=== PATIENT | female | born 1975 | race Caucasian/White ===

== ENCOUNTER 2019-09-29 22:16 | Inpatient (IN) ==
[2019-09-29 22:58] LABS: Basophils % 0.1 %; Hematocrit 38.9 % (35.3-44.9); Immature Granulocytes % 0.2 % (0-4); Lymphocytes # 1.1 K/mcL (0.6-4.6); Lymphocytes % 12.7 %; Mean Corpuscular HGB Conc 30.8 g/dL (31.6-35.5); Mean Corpuscular Hemoglobin 30.8 pg (28.0-33.3); Mean Platelet Volume 9.5 fL (9.4-12.4); Monocytes # 0.6 K/mcL (0.0-1.3); Monocytes % 6.8 %; Platelet Count 269 K/mcL (140-400); Red Blood Count 3.89 M/mcL (3.82-4.97); Red Cell Distribution Width 13.8 % (11.5-14.5); Segmented Neutrophils % 80.2 %; White Blood Count 8.7 K/mcL (4.3-11.1)
[2019-09-29 23:02] LABS: Prothrombin Time 11.4 Seconds (9.4-12.1)
[2019-09-29 23:04] LABS: Activated Partial Thrombo Time 32.6 Seconds (26.0-36.0)
[2019-09-29 23:18] LABS: Alanine Aminotransferase 11 Units/L (7-52); Albumin 3.9 g/dL (3.5-5.7); Albumin/Globulin Ratio 1.6 (1.1-2.2); Alkaline Phosphatase 76 Units/L (34-104); Aspartate Amino Transferase 14 Units/L (13-39); BUN/Creatinine Ratio 28 (6-26); Bilirubin,Total 0.3 mg/dL (0.3-1.0); Blood Urea Nitrogen 18 mg/dL (6-20); Calcium 9.4 mg/dL (8.6-10.3); Carbon Dioxide 26 mEq/L (23-29); Chloride 109 mEq/L (98-107); Creatine Kinase 63 Units/L (30-223); Globulin 2.5 g/dL (2.4-3.5); Glucose 127 mg/dL (70-105); Osmolality,Calculated 297 (280-300); Potassium 3.5 mEq/L (3.5-5.1); Sodium 142 mEq/L (136-145); Total Protein 6.4 g/dL (6.4-8.9); eGFR For African Americans > 60 (> 60); eGFR For Non-African Americans > 60 (> 60)
[2019-09-29 23:45] LABS: Bilirubin,Urine Negative (Negative); Blood,Urine Trace (Negative); Clarity,Urine Clear (Clear); Color,Urine Light-Yellow (Yellow); Glucose,Urine (UA) Normal (Normal); Hyaline Casts,Urine Few per lpf (None Seen); Ketones,Urine Negative (Negative); Leukocyte Esterase,Urine Trace (Negative); Mucus,Urine Few per lpf (None-Few); Nitrite,Urine Negative (Negative); Protein,Urine Trace mg/dL (Neg-Trace); Renal Epithelial Cells,Urine Few per hpf (None-Few); Specific Gravity,Urine > 1.030 (1.010-1.025); Squamous Epithelial Cell,Urine Few per hpf (None-Few); Urobilinogen,Urine Normal (Normal); WBC,Urine 0-3 per hpf (0-3)
[2019-09-30 01:11] LABS: Adenovirus Not Detected (Not Detect); Bordetella Pertussis Not Detected (Not Detect); Chlamydophila pneumoniae Not Detected (Not Detect); Coronavirus 229E Not Detected (Not Detect); Coronavirus HKU1 Not Detected (Not Detect); Coronavirus NL63 Not Detected (Not Detect); Coronavirus OC43 Not Detected (Not Detect); Human Metapneumovirus Not Detected (Not Detect); Human Rhinovirus/Enterovirus Not Detected (Not Detect); Influenza A Subtype 2009 H1 Not Detected (Not Detect); Influenza B Not Detected (Not Detect); Mycoplasma pneumoniae Not Detected (Not Detect); Parainfluenza Virus 1 Not Detected (Not Detect); Parainfluenza Virus 2 Not Detected (Not Detect); Parainfluenza Virus 3 Not Detected (Not Detect); Parainfluenza Virus 4 Not Detected (Not Detect); Respiratory Syncytial Virus Not Detected (Not Detect)
[2019-09-30 03:42] LABS: Amphetamine Screen,Urine Negative ng/mL (Cutoff=1000); Barbiturate Screen,Urine Negative ng/mL (Cutoff=200); Benzodiazepines Screen,Urine Positive ng/mL (Cutoff=200); Cannabinoid Screen,Urine Negative ng/mL (Cutoff = 50); Cocaine Screen,Urine Negative ng/mL (Cutoff= 300); Opiate Screen,Urine Negative ng/mL (Cutoff=300); Phencyclidine Screen,Urine Negative ng/mL (Cutoff=25)
[2019-09-30] MEDS ORDERED: Naloxone 0.4 MG/ML INJ IVP PRN (04:04)
[2019-09-30] MEDS ORDERED: 0.9 % Sodium Chloride 1,000 ML IVC SCH (04:15)
[2019-09-30] MEDS ORDERED: Ringers Solution, Lactated 1,000 ML IVC ONE (07:42)
[2019-09-30] MEDS: Cholecalciferol (D-3) 1,000 UNIT (25MCG) TABLET PO SCH (10:07)
[2019-09-30] MEDS: Vitamin E 200 UNIT (90MG) CAPSULE PO SCH (10:07)
[2019-09-30] MEDS: cefTRIAXone 1,000 MG in 0.9 % Sodium Chloride Mini Bag 100 ML IVPB SCH (10:08)
[2019-09-30] MEDS: Acetaminophen 325 MG TABLET PO PRN ×2 (10:12→18:51)
[2019-09-30] MEDS ORDERED: Lithium Carbonate 300 MG CAPSULE PO SCH (21:00)
[2019-09-30] MEDS ORDERED: RISPERIDONE 0.5 MG PO SCH (21:00)
[2019-09-30] MEDS ORDERED: BENZTROPINE MESYLATE 2 MG PO SCH (21:00)
[2019-09-30] MEDS: OLANZapine 10 MG TAB.RAPDIS PO SCH (21:28)
[2019-09-30] MEDS: *HR* Acetaminophen w/Cod 300-30 mg 1 TAB TABLET PO SCH (21:28)
[2019-09-30] MEDS: Lithium Carbonate 300 MG CAPSULE PO SCH (21:28)
[2019-09-30] MEDS: clonazePAM 0.5 MG TABLET PO SCH (21:29)
[2019-09-30] MEDS: risperiDONE 1 MG TABLET PO SCH (21:29)
[2019-10-01] MEDS: Ondansetron 4 MG/2 ML VIAL IVP PRN ×2 (02:11→20:59)
[2019-10-01 02:33] LABS: Hematocrit 39.1 % (35.3-44.9); Hemoglobin 12.1 g/dL (11.5-15.4); Immature Granulocytes % 0.3 % (0-4); Lymphocytes # 1.8 K/mcL (0.6-4.6); Lymphocytes % 26.2 %; Mean Corpuscular HGB Conc 30.9 g/dL (31.6-35.5); Mean Corpuscular Hemoglobin 31.2 pg (28.0-33.3); Mean Corpuscular Volume 100.8 fL (83.0-100.0); Mean Platelet Volume 9.7 fL (9.4-12.4); Monocytes # 0.5 K/mcL (0.0-1.3); Monocytes % 6.5 %; Neutrophils # 4.6 K/mcL (1.6-8.9); Platelet Count 285 K/mcL (140-400); Red Blood Count 3.88 M/mcL (3.82-4.97); Red Cell Distribution Width 13.8 % (11.5-14.5); White Blood Count 6.9 K/mcL (4.3-11.1)
[2019-10-01 02:56] LABS: BUN/Creatinine Ratio 27 (6-26); Blood Urea Nitrogen 18 mg/dL (6-20); Calcium 9.6 mg/dL (8.6-10.3); Carbon Dioxide 23 mEq/L (23-29); Chloride 110 mEq/L (98-107); Glucose 99 mg/dL (70-105); Magnesium 2.3 mg/dL (1.6-2.6); Osmolality,Calculated 294 (280-300); Potassium 3.9 mEq/L (3.5-5.1); Sodium 141 mEq/L (136-145); eGFR For African Americans > 60 (> 60); eGFR For Non-African Americans > 60 (> 60)
[2019-10-01] MEDS: Vitamin E 200 UNIT (90MG) CAPSULE PO SCH (10:01)
[2019-10-01] MEDS: cefTRIAXone 1,000 MG in 0.9 % Sodium Chloride Mini Bag 100 ML IVPB SCH (10:01)
[2019-10-01] MEDS: Cholecalciferol (D-3) 1,000 UNIT (25MCG) TABLET PO SCH (10:01)
[2019-10-01] MEDS: clonazePAM 0.5 MG TABLET PO SCH ×2 (10:02→15:38)
[2019-10-01] MEDS: *HR* Heparin 5,000 UNIT/ML VIAL SQ SCH (18:12)
[2019-10-02 01:27] LABS: Hematocrit 40.4 % (35.3-44.9); Hemoglobin 12.8 g/dL (11.5-15.4); Immature Granulocytes % 0.4 % (0-4); Lymphocytes # 0.6 K/mcL (0.6-4.6); Lymphocytes % 4.3 %; Mean Corpuscular HGB Conc 31.7 g/dL (31.6-35.5); Mean Corpuscular Hemoglobin 31.8 pg (28.0-33.3); Mean Corpuscular Volume 100.2 fL (83.0-100.0); Mean Platelet Volume 9.4 fL (9.4-12.4); Monocytes # 0.8 K/mcL (0.0-1.3); Monocytes % 5.8 %; Neutrophils # 12.4 K/mcL (1.6-8.9); Platelet Count 305 K/mcL (140-400); Red Blood Count 4.03 M/mcL (3.82-4.97); Red Cell Distribution Width 13.7 % (11.5-14.5); Segmented Neutrophils % 89.5 %
[2019-10-02 01:28] LABS: White Blood Count 13.9 K/mcL (4.3-11.1)
[2019-10-02 01:47] LABS: BUN/Creatinine Ratio 18 (6-26); Blood Urea Nitrogen 18 mg/dL (6-20); Calcium 10.1 mg/dL (8.6-10.3); Carbon Dioxide 21 mEq/L (23-29); Chloride 107 mEq/L (98-107); Glucose 148 mg/dL (70-105); Magnesium 2.5 mg/dL (1.6-2.6); Osmolality,Calculated 293 (280-300); Potassium 3.8 mEq/L (3.5-5.1); Sodium 139 mEq/L (136-145); eGFR For African Americans > 60 (> 60); eGFR For Non-African Americans 59 (> 60)
[2019-10-02] MEDS: clonazePAM 0.5 MG TABLET PO SCH ×2 (04:48→09:00)
[2019-10-02] MEDS: Lithium Carbonate 300 MG CAPSULE PO SCH (04:48)
[2019-10-02] MEDS: OLANZapine 10 MG TAB.RAPDIS PO SCH (04:49)
[2019-10-02] MEDS: risperiDONE 1 MG TABLET PO SCH (04:49)
[2019-10-02] MEDS: *HR* Acetaminophen w/Cod 300-30 mg 1 TAB TABLET PO SCH (04:49)
[2019-10-02 06:42] VITALS: BP 144/94
[2019-10-02] MEDS: *HR* Heparin 5,000 UNIT/ML VIAL SQ SCH (06:53)
[2019-10-02] MEDS: Cholecalciferol (D-3) 1,000 UNIT (25MCG) TABLET PO SCH (08:59)
[2019-10-02] MEDS: Vitamin E 200 UNIT (90MG) CAPSULE PO SCH (08:59)
[2019-10-02] MEDS: Acetaminophen 325 MG TABLET PO PRN (09:00)
[2019-10-02] MEDS: Ondansetron 4 MG/2 ML VIAL IVP PRN (09:01)
[2019-10-02] MEDS: cefTRIAXone 1,000 MG in 0.9 % Sodium Chloride Mini Bag 100 ML IVPB SCH (09:02)
[2019-10-02] MEDS ORDERED: Ondansetron ODT 4 MG TAB.RAPDIS SL ONE (14:01)
== END 2019-10-02 16:17 | disposition home health service (06) | DRG 690 ==
LOC: EMEROOARM 22:16 → 3ANU 22:16 → SUATTDRO 09-30 03:11 → 3ANU 09-30 03:52 → SUATTDRO 09-30 14:11
PROVIDERS: ADMIT Student in an Organized Health Care Education/Training Program; ATTEND Internal Medicine